=== PATIENT | female | born 1955 | race Caucasian/White ===

== ENCOUNTER 2022-03-28 07:33 | Emergency (ER) | payer MEDICAID, SELFPAY ==
[2022-03-28 07:42] VITALS: BP 180/113; PULSE 94; RESP 18; TEMP 36.4; O2SAT 89; BMI 33.7
--- NOTE | 2022-03-28 07:47 | XRR_ITS ---
PROCEDURE INFORMATION: Exam: XR Chest Exam date and time: 03/28/2022 8:48 AM Age: 66 years old Clinical indication: Cough and shortness of breath; Additional info: Cough, SOB TECHNIQUE: Imaging protocol: Radiologic exam of the chest. Views: 1 view. COMPARISON: CR XR chest 1V 41000 03/26/2019 10:11 PM FINDINGS: Lungs: Unremarkable. No consolidation. Pleural spaces: Unremarkable. No pleural effusion. No pneumothorax. Heart/Mediastinum: Unremarkable. No cardiomegaly. Bones/joints: Unremarkable. XR/XR chest 1V portable [id number] IMPRESSION: No acute findings.
--- NOTE | 2022-03-28 07:48 | ECG_ITS ---
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
--- NOTE | 2022-03-28 07:49 | ED_ITS ---
HPI - SOB/Dyspnea General: Chief Complaint: Shortness of Breath/Dyspnea Stated Complaint: sob,congestion,weak Time Seen by Provider: 03/28/22 07:34 Source: patient Mode of arrival: ambulatory Limitations: no limitations History of Present Illness: HPI Narrative: Patient is a nice 66-year-old female presents to ED today with complaints of not feeling well over the past 2 to 3 days. She is told me she has been having trouble sleeping, has felt nauseous with a decreased appetite, has experienced subjective low-grade fevers, has had a productive cough with associated shortnes s of breath. She states she has been around some sick grandchildren with similar symptoms. She is an every day smoker with no known history of COPD or emphysema. Patient does not wear oxygen. She is not having any chest pain. She feels like her most bothersome symptom is the shortness of breath and productive cough. She has not noticed any lower extremity swelling, orthopnea, or PND. Patient has not had any vomiting, abdominal pain, or diarrhea. No urinary complaints. MD elicited complaint: shortness of breath and cough Pertinent past history: other (everyday smoker, HTN) Onset (ago): day(s) Context: other (reports being around sick grandchildren) Timing: constant Severity: moderate Associated symptoms: Reports chest congestion, fever(s) (subjective) and nausea; Deny abdominal pain, chest pain, dizziness, extremity pain, hemoptysis, lightheadedness, palpitations, syncope or vomiting Treatment prior to arrival: none Related Data: Home oxygen amount: none Review of Systems Const: Reports: fever(s) (subjective) and fatigue; Denies: chills or body aches ENMT: Denies: throat pain, odynophagia, nasal discharge, nasal congestion, post nasal drip or sinus pain Card: Reports: dyspnea on exertion; Denies: chest pain, palpitations, irregular heart rhythm, edema, swelling of feet/ankles, lightheadedness, syncope or pre-syncope Resp: Reports: dyspnea, productive cough and chest congestion; Denies: wheezing, pain on inspiration or hemoptysis GI: Reports: nausea; Denies: abdominal pain, vomiting, diarrhea, change in bowel habits, hematochezia or melena : Denies: flank pain or dysuria Musc: Denies: neck pain, back pain, extremity pain or joint pain Skin/Breast: Denies: rash Neuro: Denies: headache(s), dizziness or confusion PFSH ED PFSH: Social History Smoking and tobacco status: current every day smoker cigarettes Packs smoked per day: 1.5 Years cigarettes smoked: 30 Quit status (tobacco): considering quitting Second hand smoke exposure: No Physical Exam Const: COMMON NORMALS: patient oriented x3 and alert GENERAL APPEARANCE: cooperative and in distress (mildly hypoxic on RA) ORIENTATION/CONSCIOUSNESS: Yes awake, Yes oriented to person, Yes oriented to place and Yes oriented to time HENMT: COMMON NORMALS: normocephalic and atraumatic HEAD & SCALP: normal to inspection, normocephalic and atraumatic Neck/C-Spine: COMMON NORMALS: no lymphadenopathy and no JVD GENERAL: Yes normal visual inspection Chest: COMMONS NORMALS: normal inspection of the chest and normal palpation of entire chest wall Resp: COMMON NORMALS: normal respiratory effort EFFORT & INSPECTION: Yes able to speak in complete sentences and Yes respiratory distress (mildly hypoxic on RA 89-90%) AUSCULTATION: rhonchi throughout and wheezes scattered wheezes Cardio: COMMON NORMALS: no JVD, regular rate and regular rhythm RATE: regular rate RHYTHM: regular rhythm GI: COMMON NORMALS: Normal to inspection, nondistended, normoactive bowel sounds present, Soft to palpation and non-tender PALPATION: Yes Soft to palpation Extremity: COMMON NORMALS: normal to inspection, no calf tenderness and no pedal edema GENERAL: Yes normal exam except as noted Neuro: BI COMA SCALE: document GCS findings [place] coma scale eye opening: Spontaneous Bi coma scale verbal response: Orientated [place] coma scale motor response: Obey commands Bi coma scale total score: 15 COMMON NORMALS: patient oriented x3, moves all extremities, no focal motor deficits, no sensory deficits noted and gait normal SENSORIUM/ORIENTATION: Yes alert, Yes oriented to person, Yes oriented to place and Yes oriented to time Skin: COMMON NORMALS: no rashes or lesions noted GENERAL SKIN EXAM: no rashes or lesions noted Course Vital Signs: Vital signs: Vital Signs Temperature 97.6 F 03/28/22 07:42 Pulse Rate 75 03/28/22 10:51 Respiratory Rate 18 03/28/22 10:51 Blood Pressure 167/82 03/28/22 10:51 Pulse Oximetry 91 03/28/22 11:23 Oxygen Delivery Me thod 03/28/22 10:51 Oxygen Flow Rate 2 03/28/22 11:23 MDM - SOB/Dyspnea Medical Decision Making Patient is a nice 66-year-old female here with concerns of not feeling well, subjective low-grade fevers, shortness of breath with cough. Patient is an ev cornelio day history with no known history of COPD although this is very likely. Upon arrival she is hypertensive at 180/113 and hypoxic on room air at 88 to 90%. She admittedly did not take her blood pressure medication this morning. Blood pressure did improve with administration of this. Work-up overall is non- concerning. She has a normal white count with a normal procal. She is hyponatremic although this seems to be chronic for her. Mildly hypokalemic and was given oral replacement for this. Baseline troponin of 17 with a negative delta. Initial and repeat EKGs without ischemic findings. CXR normal. Rapid influenza and COVID-negative. Coronavirus PCR pending. DDx includes viral uppe r respiratory illness including COVID-19 vs COPD exacerbation. Patient was offered hospital admission secondary to hypoxia but she declines and would like to go home. Will be placed on steroids, antibiotics, and steroid inhaler. She will be called with Coronavirus PCR results if positive. I think would be reasonable if positive to switch her antibiotics for Paxlovid. Patient states her grandson is an RN and will help care for her and monitor her oxygen levels. Strict return ED precautions given to which she voices understanding of. Lab Data 03/28/22 08:25 03/28/22 08:25 Labs/Radiology: Radiology Impressions Chest X-Ray 03/28/22 07:47 IMPRESSION: No acute findings. Laboratory Results WBC 5.2 10^3/uL (4.0-10.0) 03/28/22 08:25 RBC 4.97 10^6/uL (4.1-5.3) 03/28/22 08:25 Hgb 14.9 g/dL (11.5-15.3) 03/28/22 08:25 Hct 43.8 % (37.0-47.0) 03/28/22 08:25 MCV 88.1 fl (81-99) 03/28/22 08:25 MCH 30.0 pg (28.0-34.0) 03/28/22 08:25 MCHC 34.0 g/dL (30.0-36.0) 03/28/22 08:25 RDW 13.0 % (12.1-15.1) 03/28/22 08:25 Plt Count 206 10^3/cmm (130-400) 03/28/22 08:25 MPV 10.9 fL (7.4-10.4) H 03/28/22 08:25 Neut % (Auto) 65.8 % 03/28/22 08:25 Lymph % (Auto) 22.3 % 03/28/22 08:25 [place] % (Auto) 11.5 % 03/28/22 08:25 Eos % (Auto) 0.0 % 03/28/22 08:25 Baso % (Auto) 0.2 % 03/28/22 08:25 Neut # (Auto) 3.39 10^3/uL (1.8-7.7) 03/28/22 08:25 Lymph # (Auto) 1.2 10^3/uL (0.8-4.8) 03/28/22 08:25 [place] # (Auto) 0.6 10^3/uL (0.2-0.9) 03/28/22 08:25 Eos # (Auto) 0.0 10^3/uL (0.0-0.8) 03/28/22 08:25 Baso # (Auto) 0.0 10^3/uL (0.0-0.1) 03/28/22 08:25 Nucleated RBC % (auto) 0 % 03/28/22 08:25 Nucleated RBCs # 0.0 /100WBC 03/28/22 08:25 Sodium 124 mmol/L (136-145) L 03/28/22 08:25 Potassium 3.1 mmol/L (3.5-5.1) L 03/28/22 08:25 Chloride 84 mmol/L (98-107) L 03/28/22 08:25 Carbon Dioxide 29 mmol/L (22-29) 03/28/22 08:25 Anion Gap 14.1 (5-19) 03/28/22 08:25 BUN 10 mg/dL (8-23) 03/28/22 08:25 Creatinine 0.5 mg/dL (0.5-0.9) 03/28/22 08:25 GFR Calculation 123.8 mL/min (90-130) 03/28/22 08:25 Glucose 107 mg/dL (65-115) 03/28/22 08:25 Calculated Osmolality 258 mOsm/kg (285-295) L 03/28/22 08:25 Calcium 9.7 mg/dL (8.5-10.5) 03/28/22 08:25 Total Bilirubin 0.3 mg/dL (0.15-1.2) 03/28/22 08:25 AST 25 U/L (0-32) 03/28/22 08:25 ALT 17 U/L (0-33) 03/28/22 08:25 Alkaline Phosphatase 96 U/L (35-105) 03/28/22 08:25 Troponin T Baseline 17 ng/L (0-10) H 03/28/22 08:25 Troponin T 120 Minute 15.05 ng/L (0-10) H 03/28/22 10:24 Delta Troponin T -1.95 ABS# (0-10) L 03/28/22 10:24 Total Protein 6.8 g/dL (6.6-8.7) 03/28/22 08:25 Albumin 4.3 g/dL (3.5-5.2) 03/28/22 08:25 Globulin 2.5 g/dL (1.3-4.6) 03/28/22 08:25 Procalcitonin 0.12 ng/mL (0-0.5) 03/28/22 08:25 Influenza Type A Ag negative (Negative) 03/28/22 08:25 Influenza Type B Ag negative (Negative) 03/28/22 08:25 SARS-CoV-2 Ag (Rapid) negative (Negative) 03/28/22 08:25 Discharge Plan Discharge Patient Disposition: Home Clinical Impression: Acute exacerbation of chronic obstructive airways disease Condition: Stable Prescriptions: New prednisone 10 mg tablet 60 mg PO DAILY 5 Days Qty: 30 0RF levofloxacin 500 mg tablet 500 mg PO DAILY 7 Days Qty: 7 0RF Advair HFA 45-21 mcg/actuation HFA aerosol inhaler 2 inh inhalation Q12H Qty: 8 0RF Rx Instructions: administer with spacer No Action potassium chloride 10 mEq tablet extended release 10 meq PO DAILY buspirone 10 mg tablet 10 mg PO BID Qty: 60 1RF levothyroxine 50 mcg capsule 50 mcg PO DAILY lisinopril 10 mg tablet 10 mg PO DAILY Discharge Orders: Discharge ED (Routine); Ordered 03/28/22 Ordered By: Alicia Burger Other Ambulatory Orders: DME: Oxygen (Order) Location: None Selected Ordered By: Alicia Burger Referrals: Shane Barlow MD [Primary Care Provider] - Patient Instructions: COPD (Chronic Obstructive Pulmonary Disease) (DC) Coding Level of Care Code ED Optical Lab Technician for Chg Fwd Exam Comprehensive
[2022-03-28 08:01] VITALS: PULSE 86; RESP 20; O2SAT 94
[2022-03-28] MEDS: ipratropium-albuterol 3 mL Neb INHALATION (08:01)
[2022-03-28 08:04] VITALS: PULSE 84
[2022-03-28] MEDS: lisinopril 20 mg Tablet 40 MG PO (08:19)
[2022-03-28 09:00] LABS: Basophils % 0.2 %; Hematocrit 43.8 % (37.0-47.0); Hemoglobin 14.9 g/dL (11.5-15.3); Lymphocytes # 1.2 10^3/uL (0.8-4.8); Lymphocytes % 22.3 %; Mean Corpuscular Volume 88.1 fl (81-99); Mean Platelet Volume 10.9 fL (7.4-10.4); Monocytes # 0.6 10^3/uL (0.2-0.9); Monocytes % 11.5 %; Neutrophils # 3.39 10^3/uL (1.8-7.7); Neutrophils % 65.8 %; Nucleated Red Blood Cells % 0 %; Platelet Count 206 10^3/cmm (130-400); Red Blood Count 4.97 10^6/uL (4.1-5.3); White Blood Count 5.2 10^3/uL (4.0-10.0)
[2022-03-28 09:15] LABS: Troponin(5th) Baseline 17 ng/L (0-10)
[2022-03-28 09:17] LABS: Alanine Aminotransferase 17 U/L (0-33); Albumin Level 4.3 g/dL (3.5-5.2); Alkaline Phosphatase 96 U/L (35-105); Anion Gap 14.1 (5-19); Aspartate Amino Transferase 25 U/L (0-32); Blood Urea Nitrogen 10 mg/dL (8-23); Calcium 9.7 mg/dL (8.5-10.5); Carbon Dioxide 29 mmol/L (22-29); Chloride 84 mmol/L (98-107); Creatinine Clr Calc Pharmacy 76.4858; Globulin 2.5 g/dL (1.3-4.6); Glomerular Filtration Rate 123.8 mL/min (90-130); Glucose 107 mg/dL (65-115); Osmolality Calculated 258 mOsm/kg (285-295); Potassium 3.1 mmol/L (3.5-5.1); Sodium 124 mmol/L (136-145); Total Bilirubin 0.3 mg/dL (0.15-1.2); Total Protein 6.8 g/dL (6.6-8.7)
[2022-03-28 09:23] LABS: Procalcitonin 0.12 ng/mL (0-0.5)
[2022-03-28 09:47] LABS: SARS Covid-2 Antigen negative (Negative)
[2022-03-28 09:48] LABS: Influenza A by IFA negative (Negative); Influenza B by IFA negative (Negative)
--- NOTE | 2022-03-28 09:55 | ECG_ITS ---
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
[2022-03-28] MEDS: potassium chloride ER 20 mEq Tablet 40 MEQ PO (10:20)
[2022-03-28 10:51] VITALS: BP 167/82; PULSE 75; RESP 18; O2SAT 92
[2022-03-28 11:02] LABS: Troponin 5 2HR 15.05 ng/L (0-10)
[2022-03-28 11:04] LABS: Troponin 5 2HR Delta -1.95 ABS# (0-10)
[2022-03-28 11:23] VITALS: O2SAT 85; O2SAT 91; O2SAT 92
[2022-03-28 12:26] LABS: Adenovirus Not Detected (NOT DETECT); Chlamydia Pneumoniae Not Detected (NOT DETECT); Coronavirus 229E,HKU1,NL63,OC4 Not Detected (NOT DETECT); Human Metapneumovirus Not Detected (NOT DETECT); Human Rhinovirus/Enterovirus Not Detected (NOT DETECT); Influenza A Detected (NOT DETECT); Influenza A H1 Not Detected (NOT DETECT); Influenza A H1-2009 Detected (NOT DETECT); Influenza A H3 Not Detected (NOT DETECT); Influenza B Not Detected (NOT DETECT); Mycoplasma Pneumoniae Not Detected (NOT DETECT); Parainfluenza Virus Type 1 Not Detected (NOT DETECT); Parainfluenza Virus Type 2 Not Detected (NOT DETECT); Parainfluenza Virus Type 3 Not Detected (NOT DETECT); Parainfluenza Virus Type 4 Not Detected (NOT DETECT); Respiratory Syncytial Virus A Not Detected (NOT DETECT); Respiratory Syncytial Virus B Not Detected (NOT DETECT); SARS-COV-2 Not Detected (NOT DETECT)
[2022-03-28 12:30] VITALS: BP 162/89; PULSE 84; RESP 16; O2SAT 93
[2022-03-28 12:53] LABS: Influenza A Detected (NOT DETECT); Influenza A H1 Not Detected (NOT DETECT); Influenza A H1-2009 Detected (NOT DETECT); Influenza A H3 Not Detected (NOT DETECT); Influenza B Not Detected (NOT DETECT); Results from Genmark
--- NOTE | 2022-04-06 16:19 | DCPLANNER ---
cyber access precert completed, and faxed to HOME - certification number Approval pending for this procedure and patient on current date of service, pending eligibility verification. Pre-Cert number assigned: [id number]
== END 2022-03-28 12:31 | disposition home or self-care (01) ==
PROVIDERS: Emergency Medicine; Emergency Provider Physician Assistant; PCP Family Medicine
DX: J44.1 Chronic obstructive pulmonary disease with (acute) exacerbation (principal); Z20.822 Contact with and (suspected) exposure to COVID-19; F17.210 Nicotine dependence, cigarettes, uncomplicated
CPT/HCPCS: 71045; 80053; 84145; 84484; 85025; 87426; 87631; 87635; 87804; 93005; 94640; 96374; 99285; J2930

== ENCOUNTER → 2022-03-31 11:33 | Outpatient (BNVA) | payer MEDICAID, SELFPAY | PROVIDERS: PCP Family Medicine; Visit Provider Family Medicine | DX: E87.1 Hypo-osmolality and hyponatremia (principal); E87.6 Hypokalemia; E03.9 Hypothyroidism, unspecified; I10 Essential (primary) hypertension; Z13.6 Encounter for screening for cardiovascular disorders; J44.9 Chronic obstructive pulmonary disease, unspecified; Z72.0 Tobacco use; J44.1 Chronic obstructive pulmonary disease with (acute) exacerbation | CPT/HCPCS: 80048; 80061; 84443 ==

== ENCOUNTER → 2022-04-07 12:59 | Outpatient (BNVA) | payer MEDICAID, SELFPAY | PROVIDERS: PCP Family Medicine; Visit Provider Family Medicine | DX: J44.9 Chronic obstructive pulmonary disease, unspecified (principal); H61.23 Impacted cerumen, bilateral; E87.6 Hypokalemia | CPT/HCPCS: 80048 ==

== ENCOUNTER → 2022-06-04 09:33 | Outpatient (BNVA) | payer MEDICAID, SELFPAY | PROVIDERS: PCP Family Medicine; Referring Provider Family Medicine; Visit Provider Student in an Organized Health Care Education/Training Program | DX: M17.0 Bilateral primary osteoarthritis of knee (principal) | CPT/HCPCS: 20610; 73560; 73565; 99204; J3301; J3490 ==

== ENCOUNTER → 2022-08-26 10:33 | Outpatient (BNVA) | payer MEDICAID, SELFPAY | PROVIDERS: PCP Family Medicine; Visit Provider Nurse Practitioner Family | DX: M17.11 Unilateral primary osteoarthritis, right knee (principal) | CPT/HCPCS: 99214 ==

== ENCOUNTER 2022-09-08 12:02 | Outpatient (CLI) | payer MEDICAID, SELFPAY ==
--- NOTE | 2022-09-08 12:00 | CT_ITS ---
WS: [id number] CT RIGHT KNEE, NONCONTRAST TECHNIQUE: Noncontrast CT of the RIGHT knee to include the RIGHT hip and ankle. [place] CLINICAL INFORMATION: pre-op COMPARISON: None. DLP: 1003.[address] scans at [facility] use at least one of these dose optimization techniques: automated e xposure control; mA and/or kV adjustment per patient size (includes targeted exams where dose is matc hed to clinical indication); or iterative reconstruction. FINDINGS: Advanced osteoarthritis RIGHT knee worse involving the medial joint compartment with comple te loss of joint space and subchondral sclerosis Mild degenerative arthritis sacroiliac joints. Moderate degenerative arthritis both hips. Vascular ca lcification. Hypertrophic changes along the joint line. Hypertrophic patella. CT/CT knee RT [place] IMPRESSION: Images obtained for preoperative purposes.
== END 2022-09-08 12:03 | disposition home or self-care (01) ==
PROVIDERS: PCP Family Medicine; Visit Provider Nurse Practitioner Family
DX: M17.11 Unilateral primary osteoarthritis, right knee (principal)
CPT/HCPCS: 73700

== ENCOUNTER → 2022-09-16 14:39 | Outpatient (BNVA) | payer MEDICAID, SELFPAY | PROVIDERS: PCP Family Medicine; Visit Provider Student in an Organized Health Care Education/Training Program | DX: M17.0 Bilateral primary osteoarthritis of knee (principal) | CPT/HCPCS: 99214 ==

== ENCOUNTER 2022-09-21 13:12 | Outpatient (CLI) | payer MEDICAID, SELFPAY ==
--- NOTE | 2022-09-21 13:45 | USCV_ITS ---
Deonna Oviedo Age: 67 Gender: F : 1955 Exam Date: 09/21/2022 14:03 Ordering Phys: Lisandro Becker NP Technologist: CT Exam Location: [facility]_ Indication: bruit Risk Factors: Previous Vascular Surgery: Right Brachial BP: / Left Brachial BP: / Right Left Velocity (cm/s) Spectral Plaque Velocity (cm/s) Spectral Plaque Syst/Diast Broadening Syst/Diast Broadening 66.90/ 15.60 Prox CCA 72.00 / 15.30 75.90/ 20.20 Mid CCA 90.10 / 18.90 52.80/ 15.60 Distal CCA 82.90 / 15.30 63.90/ 18.00 Prox ICA 59.30 / 14.00 54.10/ 17.50 Mid ICA 66.30 / 22.60 61.20/ 19.00 Distal ICA 66.20 / 18.70 70.20 ECA 215.80 0.84 ICA/CCA 0.74 Antegrade Vertebral Antegrade 44.10/ 13.80 cm/s 39.70/ 14.90 cm/s Bi Subclavian Bi 109.7 112.8 0 0 FINDINGS Comparison: none available. No significant elevation of systolic or diastolic velocities. Waveforms are normal. Diffuse bilateral scattered calcified plaque and intimal thickening throughout the common carotid arteries and extending through the bifurcation. Antegrade vertebral arteries. CONCLUSIONS Bilateral ICA stenosis less than 50%. Mild carotid atherosclerosis. Dr. Nataly Levin DO (Electronically Signed) Final Date: 21 September 2022 15:55 S
== END 2022-09-21 13:13 | disposition home or self-care (01) ==
LOC: RAD 13:13
PROVIDERS: PCP Family Medicine; Visit Provider Clinical Nurse Specialist Adult Health
DX: R09.89 Other specified symptoms and signs involving the circulatory and respiratory systems (principal)
CPT/HCPCS: 80048; 85025; 93880

== ENCOUNTER 2022-09-29 10:37 | Observation (INO) | payer MEDICAID, SELFPAY ==
[2022-09-22 10:07] VITALS: BMI 35.6
[2022-09-22 10:33] LABS: Add Urine Microscopic? NO; Charge for UA Resulting for Rev
[2022-09-22 10:50] LABS: Urine Appearance Clear (CLEAR); Urine Color Yellow (Yellow); pH Urine 5 (5-7)
[2022-09-22 10:51] LABS: Bilirubin Urine Neg (Negative); Blood Urine Neg (Negative); Glucose Urine UA Norm (Normal); Ketones Urine Negative (Negative); Leukocyte Esterase Urine Negative (Negative); Nitrate Urine Negative (Negative); Protein Urine Neg (Negative); Urobilinogen Urine Norm (Negative)
--- NOTE | 2022-09-22 17:16 | P.ANESASSM_ITS ---
Pre-Anesthetic Assessment Height/Weight: Height 1.63 m Weight 94.347 kg Preop Diagnosis: Right knee degenerative joint disease Operation Date: 09/29/22 07:00 Proposed Procedures p right total knee arthroplasty renea: 53442, M17.11(Right) - Gonzalez Ocampo DO Familial anesthetic complications: none Was Beta Fernanda taken within 24 hours: N/A Was Clonidine taken within 24 hours: N/A Social No alcohol and No tobacco (h/o smoking) Exam alert, oriented x 3 and regular rate & rhythm Airway Submandibular: within normal limits Cervical ROM: within normal limits Mallampati: Class II Dentition: false (upper) Pulmonary Chronic Obstructive Pulmonary Disease CV/HEM Hypertension and Peripheral Vascular Disease Metabolic Morbid Obesity and Thyroid Disease [facility] [place] Osteoarthritis/DJD Anesthetic Plan ASA status: 3 Anesthesia: Regional (specify below) (SAB with adductor blk) Medications/Allergies Home Medications Medication Instructions Recorded Confirmed Last Taken Type fluticasone propionate 45 2 inh inhalation Q12H #8 grams 03/28/22 09/22/22 Unknown Rx mcg-salmeterol 21 mcg/actuation HFA inhaler (Advair HFA) potassium chloride 20 mEq 20 meq PO BID #60 tabs 04/01/22 09/22/22 09/22/22 Rx tablet,extended release buspirone 10 mg tablet 10 mg PO BID #180 tabs 07/12/22 09/22/22 09/22/22 Rx lisinopril 40 mg tablet 40 mg PO DAILY #90 tabs 07/12/22 09/22/22 09/22/22 Rx nystatin 100,000 unit/gram topical 1 applic topical TID #30 grams 07/19/22 09/22/22 Unknown Rx powder Allergies Allergy/AdvReac Type Severity Reaction Status Date / Time No Known Allergies Allergy Verified 09/16/22 15:08 [facility] Anesthesia Medical History COPD (chronic obstructive pulmonary disease) Hypertension Hypothyroidism Left carotid bruit Tobacco abuse Surgical History No history of previous surgery Family History Sister Cancer breast Brother Cancer throat Mother CAD (coronary artery disease) Other Diabetes Hypertension Social History (Reviewed 09/16/22 @ 14:46 by Lucille Kee Smoking and tobacco status: former smoker Quit status (tobacco): has quit using tobacco Former quit date comment: March 2022 Second hand smoke exposure: No Alcohol intake: never Substance/Drug Use: never Lives independently: Yes Household members: spouse Marital status: Number of children: 1 Number of grandchildren: 3 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
[2022-09-29] VITALS (20 sets, daily range): BP systolic 95–159; BP diastolic 50–88; PULSE 54–91; RESP 14–20; TEMP 36.1–36.8; O2SAT 91–97
[2022-09-29] MEDS: acetaminophen 1,000 MG/100 ML PIGGYBACK 400 MG IV ×3 (06:40→22:24)
--- NOTE | 2022-09-29 06:49 | W.PM.OPSUD ---
Surgery/Procedure H&P Update DATE OF PROCEDURE: September 29, 2022 DATE H&P PERFORMED: 09/16/22 CHANGES TO PREVIOUS DOCUMENTATION: None. No changes in HPI previous office visit on 09/16/2022. At this point time patient's been cleared by preoperative clearance to proceed with right total knee arthroplasty. Patient understands risk benefits complication alternatives with surgery and elects proceed with surgical intervention all questions answered. PREOP DIAGNOSIS: Right knee degenerative joint disease PRIMARY INDICATION FOR PROCEDURE: Right knee degenerative joint disease failed conservative treatment PLANNED PROCEDURE: Operation Date: 09/29/22 07:55 Proposed Procedures p right total knee arthroplasty renea: 56994, M17.11(Right) - Gonzalez Ocampo DO
[2022-09-29] MEDS: lactated ringers 500 ML IV (06:55)
[2022-09-29] MEDS: sodium chloride 0.9% 1,000 ML 30 ML IV (06:55)
[2022-09-29] MEDS: ketorolac 30 mg/mL INJ IVP (07:00)
[2022-09-29] MEDS: ceFAZolin 2,000 MG in sodium chloride 0.9% (plus) 50 ML 100 MG IV ×3 (08:11→23:36)
--- NOTE | 2022-09-29 08:51 | ANES.PROC ---
Anesthesia Procedures Procedure/Date: 09/29/22 adductor Nerve Block ^: Nerve Block 1: Main Anesthesia: spinal anesthesia block Time Out Performed: Yes Consent: requested by attending/covering physician, risks and benefits reviewed and patient agrees to proceed Nerve block location: adductor canal Anesthesia monitors applied: pulse oximetry, EKG, BP cuff and oxygen Nerve block position: supine Anesthetic Used: ropivicaine 0.5% Amount of anesthesia used (mL): 20 Ultrasound used to: recognize landmarks and visualize and ID femerol nerve Nerve Stimulator Used?: No Interscalene/Femoral BLK: 2 stimuplex 22 g needle used for position and inplane approach, visualize local anesthetic spread and no vascular puncture identified Injection: neg aspiration of heme Patient Tolerated Procedure: well and no complications Complications: none
[2022-09-29] MEDS: tranexamic acid 1,000 mg/10mL SDV 1000 MG XX (09:12)
[2022-09-29] MEDS: ketorolac 30 mg/mL INJ XX (09:12)
[2022-09-29] MEDS: EPINEPHrine 1 mg/mL INJ XX (09:12)
--- NOTE | 2022-09-29 09:45 | P.ANESUD_ITS ---
Pre-Anesthetic Update Pre-Anesthetic Assessment: Date of Surgery/Procedure: 09/29/22 Preop Araceli gnosis: Right knee degenerative joint disease Proposed Procedure: Operation Date: 09/29/22 07:55 Proposed Procedures p right total knee arthroplasty renea: 62736, M17.11(Right) - Gonzalez Ocampo, DO Any changes to Pre-Anesthetic Assessment?: No Last Intake: Intake Last Liquid Date 09/28/22 Last Liquid Time 22:30 Last Solid Date 09/28/22 Last Solid Time 20:00 Labs Last 48hrs: Blood Bank 09/29/22 06:42 Blood Type A Positive Rho(D) Type Positive Antibody Screen Negative Vitals: Temperature 98.2 F 09/29/22 06:30 Temperature Source Temporal Artery S can 09/29/22 06:30 Pulse Rate 83 09/29/22 06:30 Respiratory Rate 17 09/29/22 06:30 Blood Pressure 149/88 09/29/22 06:30 Blood Pressure Ximena n 108 09/29/22 06:30 Pulse Oximetry 94 09/29/22 06:30 Oxygen Delivery Me thod Room Air 09/29/22 06:52 Exam: Pre-Anes Outpt Exam: alert, oriented x 3, clear to auscultation bilaterally and regular rate & rhythm Cardiac Studies: No Data to Display
--- NOTE | 2022-09-29 10:32 | P.OP_ITS ---
Operative Report Date of procedure: September 29, 2022 Pre-op diagnosis: Preop Diagnosis Right knee degenerative joint disease Procedure: Post-op diagnosis: Same Procedure done: Right total knee arthroplasty, cemented?robotic assisted Kodi Implants: [place] triathlon size 5 femur?CR cemented left Tj triathlon size 4 tibia universal baseplate cemented [place] triathlon asymmetric patella size 32 mm Tj triathlon polyethylene 9 mm Surgeon: Gonzalez Ocampo DO Estimated blood loss: 45 mL Tourniquet 67minutes IV fluids: 1800 mL Urine output: 300mL Complications: None Condition: stable Disposition: floor Brief History: Patient is a pleasant 67-year-old female with chronic right knee degenerative joint disease.? Patient's failed conservative treatment has [id number] arthritis.? Patient's failed conservative treatment. Patient's been over 3 months out from most recent corticosteroid injection. Patient would like to proceed with a right total knee arthroplasty.? We talked about continued conservative treatment and surgical intervention as far as the risk benefits complications alternatives surgical and nonsurgical treatment options.? At this point time understanding risks with surgery patient agrees to proceed with surgical intervention.? Once again risks with surgery include but are not limited to make it better make it worse blood clot, heart attack, stroke, on the table, infection, injury to nerves or vessels, persistent pain, arthrofibrosis, implant failure.? Patient's been medically optimized and cleared for surgical intervention.? Understanding these risks he agrees to proceed with surgical intervention consent was obtained in the office.? All questions answered. Procedure: Patient was seen and evaluated in the preoperative holding area.? Consent was reviewed and signed with patient with plan for right total knee arthroplasty.? All questions answered.? Correct extremity marked.? Patient seen and evaluated by the anesthesia department and once cleared for surgery was taken back to the operative suite.? Patient was placed into a supine position on the OR table.? All bony prominences were well-padded.? Patient was appropriately secured to the bed.? Patient underwent anesthesia per the anesthesia department.? Patient underwent spinal anesthesia. Patient received anesthesia per anesthesia department and no Rivera catheter was applied.? A nonsterile tourniquet was applied to the right thigh.? At this point in time a final timeout performed.? Patient received appropriate preoperative antibiotics and TXA. Next the right lower extremity was then prepped and draped in standard orthopedic fashion.?Esmarch tourniquet was used exsanguinate the right lower extremity.? Tourniquet was insufflated to 250 mmHg. A standard anterior incision was made over midline of the right knee.? Sharp scalpel excision through skin and subcutaneous tissue full-thickness skin flaps were made.? Fascia was elevated off of the extensor retinaculum was stable with medial parapatellar arthrotomy was then made.? The performed standard sequential releases with a medial release was patient had a varus deformity.? Next the the patella was then stuffed and the knee was then flexed.? Ferdinand was placed superiorly around the anterior aspect of the femur this was freed of synovium and I subsequently then placed by 2 femur pins to establish my femur arrays for the Kodi robot.? These were then placed bicortically and? femur array was then appropriately secured with appropriate visualization.? Next attention was turned towards the tibial rays.? These were then drilled sequentially bicortically in parallel fashion and intraincisional.? I then placed my guide as well as my tibial array on in place.? This was appropriately secured and had excellent visualization with the Kodi robot.? Next the tibial checkpoint as well as femur checkpoint were then placed.? At this point time I then subsequently established my head center as well as?medial& lateral malleoli as well as my checkpoints.? Next utilizing standard Kodi technology I then mapped out the appropriate points and confirmation points around the femur as well as the tibia in standard fashion.? Once this was then done I then removed all osteophytes in preparation for dynamic testing.? All osteophytes were removed as well as I removed the ACL and the PCL was excised due to its significant tearing and degeneration noted.? At this point time the knee was brought into full extension and we performed our standard evaluation of our gap balancing stressing his ligaments and extension as well as flexion appropriate adjustments were made to have appropriate gap balancing in both flexion and extension.? This plan for final counts.? We get a preoperative plan evaluating our implants which was a size 5 femur and a size 4 tibia.? Next we brought in the Kodi robot and sequentially made our femur cuts.? All excess bony cuts were then removed.? Finally we made our tibial cut.? Once this was done a standard PCL retractor was then placed into this position I excised the medial and lateral meniscus.? The tibial cut was then subsequently removed all excess bony debris was removed.? I then utilized a lamina merchandise adjustment clerk and remove the posterior osteophytes.? At this point time sized the tibia and confirmed this was a size 4.? I utilized our blunt probe to establish rotation of tibial implant.? Once this was done I then placed my tibia size 4 trial in appropriate position and then subsequently placed tibial pins to hold this into place placed a size 9 mm poly as well as a size 5 femur which was appropriately impacted in place knee was then subsequently brought into extension.? This was stable with varus valgus stress in extension as well as flexion.? Patient had symmetric? translation and stability in flexion with symmetric gaps.? Once this was done I had excellent balance gaps in flexion and extension with varus and valgus stresses.? At this point I was satisfied with these implants these were then verified and opened on the back table size 4 tibia, size 5 femur,? size 9 mm polythickness.? We did confirm appropriate gap balancing and stresses as well as alignment utilizingCristela Mariee and were satisfied with this plan.? ?At this point time with my trials in place I then towel clip the patella everted this made appropriate measurements subsequently utilizing freehand technique performed by patellar resurfacing this was confirmed to be appropriate resection and subsequently sized to be a 32mm asymmetric.? My drill peg guides were then clamped and appropriate position and appropriate position in the patella for appropriate tracking and parallel with the joint.? Pegs were drilled trial implant was placed and the knee was then subsequently ranged and found to have excellent patellar tracking.? Femur pegs were then drilled.? All checkpoints as well as guidepins and arrays were removed and appropriate counts made.? Satisfied with our tibial placement rotation I then utilized the keel punch and prepped the tibia.? At this point time all of our trial implants were removed.?The wound bed? was thoroughly irrigated and dried and prepped for cementation.? Cement was mixed on the back table.? Once cement was ready this was then covered onto the tibia and the tibial baseplate was then impacted and all excess cement was removed.? Next the polyethylene was then impacted into place on the tibial baseplate.? Next cement was placed onto the femur as well as under the femur implants and impacted in to place and all excess cement was extruded.? Knee was taken into full extension? to clear all excess cement was removed.? Warm saline was placed over the joint.? I then towel clip patella and dried for cementation. cemented the patella into place.? This was all clamped and the cement was allowed to cure.? Thorough irrigation performed with pulse lavage.? I then placed my periarticular injection while the cement was curing.? Once cured the knee was taken through range of motion and had excellent stability and gaps were balanced in flexion and extension.? Tourniquet was then deflated.? Once tourniquet was deflated hemostasis satisfactory with electrocautery.? Next I then subsequently closed the capsule with Ethibond suture as well as a running strata fix suture.? Knee was then taken through range of motion 30 times.? Next the skin was then closed in layered fashion of running stratifix sutures of deep and subcutaneous tissue and skin. Patient was closed in flexion and Prineo glue was then placed over the incision this allowed to cure.? Incision was covered with ABDs soft roll and Chong wrap.? Patient was then awakened from anesthesia and taken to PACU in stable condition. Disposition: Patient taken to PACU in stable condition will be admitted to the floor for pain control PT/OT weight-bear as tolerated right lower extremity dressing changes as needed, DVT prophylaxis.?Pain control. Patient will receive appropriate postoperative antibiotics. patient will be seen today by the internal medicine team for medical management.? Patient will follow up with the office in 2 weeks.? Patient understands agrees with current plan.? All questions answered.
--- NOTE | 2022-09-29 10:32 | PM.OP2 ---
Brief Operative Note Date of procedure: 09/29/22 Pre-op diagnosis: Right knee degenerative joint disease Post-op diagnosis: same Procedure Done: Right total knee arthroplasty?Kodi robotic assisted Surgeon: Gonzalez Ocampo Estimated blood loss (mL): 25 Complications: None Post-op Plan: Patient taken to PACU in stable condition recovering well. Patient receive appropriate discharge instructions as well as pain medication and DVT prophylaxis postoperatively. She brian be admitted to the floor overnight. l internal medicine on board for medical management and assistance. Weight-bear as tolerated right lower extremity. Encourage knee range of motion as tolerated PT/OT. Postoperative antibiotics postoperative DVT prophylaxis postoperative pain control. Plan for likely discharge home tomorrow. All questions answered. Condition: stable Disposition: floor Coding Level of Care Code Acute Code for Sonia Rich
--- NOTE | 2022-09-29 10:32 | PM.PACU ---
PACU note Narrative: Patient taken to PACU in stable condition recovering well. Spinal anesthesia still on affect unable assess motor or sensory. Dressings on in place clean dry and intact. Distal pulses are palpable toes warm well-perfused brisk cap refill less than 2 seconds compartments are soft and compressible. Exam: awake Disposition: admitted
--- NOTE | 2022-09-29 10:46 | XR_ITS ---
WS: [id number] KNEE RIGHT TECHNIQUE: 2 views of the right knee CLINICAL INFORMATION: POST RT TKA COMPARISON: None. FINDINGS: Postoperative RIGHT TKA. Hardware present in good position. Expected postoperative changes and soft t issue edema. Small suprapatellar effusion. Patellar resurfacing. XR/XR knee RT 1-2V [id number] IMPRESSION: Normal Postoperative RIGHT TKA. Kellgren-Tommie Classification:
--- NOTE | 2022-09-29 11:39 | P.CONIM_ITS ---
Providers/Reason For Consult Consulting Physician/Specialty*: Hospitalist Reason for Consult*: Postoperative management Attending Physician: Gonzalez Ocampo DO Primary Care Provider: Anne Valentin MD History of Present Illness History of Present Illness Deonna Oviedo is a 67 year old female who carries history of COPD, uses inhaler intermittently, does not use oxygen postoperatively hospital service has been requested to manage comorbid conditions. Patient postoperatively is doing fine not requiring oxygen No active pain or discomfort Patient to work with PT in the morning Family is at the bedside Review of Systems Const: Denies: fever(s) Eyes: Denies: change in vision ENMT: Denies: throat pain Card: Denies: chest pain Resp: Denies: dyspnea GI: Denies: abdominal pain : Denies: flank pain Musc: Denies: neck pain Skin/Breast: Denies: rash Medications/Allergies Home Medications Medication Instructions Recorded Confirmed Last Taken Type fluticasone propionate 45 2 inh inhalation Q12H #8 grams 03/28/22 09/29/22 Unknown Rx mcg-salmeterol 21 mcg/actuation HFA inhaler (Advair HFA) potassium chloride 20 mEq 20 meq PO BID #60 tabs 04/01/22 09/29/22 09/28/22 Rx tablet,extended release buspirone 10 mg tablet 10 mg PO BID #180 tabs 07/12/22 09/29/22 09/28/22 Rx lisinopril 40 mg tablet 40 mg PO DAILY #90 tabs 07/12/22 09/29/22 09/28/22 Rx apixaban 2.5 mg tablet (Eliquis) 2.5 mg PO BID Blood clot 09/29/22 Unknown Rx prevention 14 days #28 tabs calcium carbonate 600 mg-vitamin 1 tab PO BID 30 days #60 tabs 09/29/22 Unknown Rx D3 10 mcg (400 unit) tablet docusate sodium 100 mg capsule 100 mg PO DAILY PRN constipation 09/29/22 Unknown Rx (Colace) 10 days #10 caps ondansetron 4 mg disintegrating 4 mg PO DAILY 5 days #5 tabs 09/29/22 Unknown Rx tablet oxycodone-acetaminophen 5 mg-325 1 tab PO Q6H PRN pain 7 days #28 09/29/22 Unknown Rx mg tablet (Percocet) tabs Allergies Allergy/AdvReac Type Severity Reaction Status Date / Time No Known Allergies Allergy Verified 09/29/22 06:24 PFSH Acute PFSH: Medical History COPD (chronic obstructive pulmonary disease) Hypertension Hypothyroidism Left carotid bruit Tobacco abuse Surgical History No history of previous surgery Family History Sister Cancer breast Brother Cancer throat Mother CAD (coronary artery disease) Other Diabetes Hypertension Social History Smoking and tobacco status: former smoker Quit status (tobacco): has quit using tobacco Former quit date comment: March 2022 Second hand smoke exposure: No Alcohol intake: never Substance/Drug Use: never Lives independently: Yes Household members: spouse Marital status: Number of children: 1 Number of grandchildren: 3 Current occupational status: retired 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 Agree to transfusion: Yes Vitals/I&O/Wt Last Vital Signs Temp 97.2 F L 09/29/22 11:26 Pulse 73 09/29/22 11:26 Resp 20 H 09/29/22 11:26 BP 103/53 09/29/22 11:26 Pulse Ox 95 09/29/22 11:26 O2 Del Method Room Air 09/29/22 11:26 09/28/22 09/29/22 09/29/22 22:59 06:59 14:59 Intake Total 100 / 100 3485 / 3485 Output Total 845 / 845 Balance 100 / 100 2640 / 2640 Physical Exam Narrative: Awake and alert GCS 15 Euvolemic Abdomen soft No active wheezing Currently on room air Family at the bedside Appears stated age No active distress Urinary Catheter Management: Rivera: Cath Placed During This Visit: yes Urinary Catheter Date of Insertion: 09/29/22 Urinary Catheter Time of Insertion: 08:32 Data 09/30/22 05:03 09/30/22 05:03 A&P Assessment and plan (1) Left carotid bruit: (2) Pre-op evaluation: (3) Osteoarthritis of right knee: Qualifiers: Osteoarthritis type: primary Qualified Code(s): M17.11 - Unilateral primary osteoarthritis, right knee (4) COPD (chronic obstructive pulmonary disease): Qualifiers: COPD type: unspecified COPD Qualified Code(s): J44.9 - Chronic obstructive pulmonary disease, unspecified (5) Hypertension: Qualifiers: Hypertension type: other secondary hypertension Qualified Code(s): I15.8 - Other secondary hypertension (6) Hypothyroidism: Plan Postoperative management by hospitalist No sign of COPD exacerbation I have put DuoNeb as as-needed basis Patient is not requiring oxygen at all Does not use oxygen at home She does have Advair which she uses on as-needed basis Full code Regular diet DVT prophylaxis Eliquis Consult Attestations Medical Necessity Statement: As per orthopedics discharge tomorrow Diagnoses Left carotid bruit R09.89 Pre-op evaluation Z01.818 Osteoarthritis of right knee M17.11 Osteoarthritis type: primary COPD (chronic obstructive pulmonary disease) J44.9 COPD type: unspecified COPD Hypertension I15.8 Hypertension type: other secondary hypertension Hypothyroidism E03.9
[2022-09-29] MEDS: lactated ringers 1,000 ML 100 ML IV (12:45)
[2022-09-29] MEDS: chlorhexidine gluconate 0.12% UDC 15 mL 30 ML MUCOUS MEM (12:46)
--- NOTE | 2022-09-29 14:12 | ANE.PACU2 ---
Inpatient post-anesthesia follow up: Airway intact: Yes Vital signs: Temperature 97.2 F Pulse Rate 59 Respiratory Rate 16 Blood Pressure 123/68 Pulse Oximetry 96 Oxygen Delivery Me thod Room Air Oxygen Flow Rate Fraction of Inspir ed Oxygen Hydration adequate: Yes Nausea and vomiting: No Pain level: 1 Mental status: Baseline
[2022-09-29] MEDS: TRAMadol 50 mg Tablet PO (17:39)
[2022-09-29] MEDS: docusate sodium 100 mg Capsule PO (17:40)
[2022-09-29] MEDS: iron polysaccharide complex 150 mg Capsule PO (17:40)
[2022-09-29] MEDS: calcium carb-vit d 600mg/400unit 1 Tablet 1 EACH PO (17:40)
[2022-09-29] MEDS: mupirocin oint 22 gm 1 APPLIC NASAL (17:42)
[2022-09-29] MEDS: atorvastatin 40 mg Tablet PO (20:17)
[2022-09-29] MEDS: budesonide 0.5 mg/2 mL Neb INHALATION (20:45)
[2022-09-29] MEDS: oxyCODONE 5 mg IR Tab/Cap PO (20:58)
[2022-09-30 00:16] VITALS: BP 142/72; PULSE 76; RESP 19; TEMP 36.8; O2SAT 94
[2022-09-30] MEDS: lactated ringers 1,000 ML 100 ML IV (03:03)
[2022-09-30 03:35] VITALS: BP 152/76; PULSE 73; RESP 19; TEMP 36.8; O2SAT 95
[2022-09-30 05:13] LABS: Basophils % 0.2 %; Eosinophils % 0.1 %; Hematocrit 37.5 % (37.0-47.0); Hemoglobin 12.3 g/dL (11.5-15.3); Lymphocytes # 1.7 10^3/uL (0.8-4.8); Mean Corpuscular HGB Conc 32.8 g/dL (30.0-36.0); Mean Corpuscular Hemoglobin 29.9 pg (28.0-34.0); Mean Corpuscular Volume 91.2 fl (81-99); Monocytes # 0.7 10^3/uL (0.2-0.9); Monocytes % 5.2 %; Neutrophils # 10.59 10^3/uL (1.8-7.7); Nucleated Red Blood Cells % 0 %; Platelet Count 261 10^3/cmm (130-400); Red Blood Count 4.11 10^6/uL (4.1-5.3); Red Cell Distribution Width 12.5 % (12.1-15.1); White Blood Count 13.1 10^3/uL (4.0-10.0)
[2022-09-30 05:30] LABS: Anion Gap 11.5 (5-19); Blood Urea Nitrogen 9 mg/dL (8-23); Calcium 9.5 mg/dL (8.5-10.5); Carbon Dioxide 26 mmol/L (22-29); Chloride 99 mmol/L (98-107); Glomerular Filtration Rate 71.8 mL/min (90-130); Glucose 125 mg/dL (65-115); Osmolality Calculated 274 mOsm/kg (285-295); Potassium 4.5 mmol/L (3.5-5.1); Sodium 132 mmol/L (136-145)
[2022-09-30] MEDS: TRAMadol 50 mg Tablet PO (06:07)
[2022-09-30] MEDS: acetaminophen 1,000 MG/100 ML PIGGYBACK 400 MG IV (06:08)
[2022-09-30 07:30] VITALS: BP 155/70; PULSE 68; RESP 18; TEMP 36.7; O2SAT 95
[2022-09-30 08:00] VITALS: PULSE 81; RESP 16; O2SAT 96
[2022-09-30 08:10] VITALS: PULSE 80
[2022-09-30] MEDS: ceFAZolin 2,000 MG in sodium chloride 0.9% (plus) 50 ML 100 MG IV (08:15)
[2022-09-30] MEDS: calcium carb-vit d 600mg/400unit 1 Tablet 1 EACH PO (08:16)
[2022-09-30] MEDS: aspirin 81 mg EC Tablet PO (08:16)
[2022-09-30] MEDS: docusate sodium 100 mg Capsule PO (08:16)
[2022-09-30] MEDS: apixaban 5 mg Tablet 2.5 MG PO (08:16)
[2022-09-30] MEDS: iron polysaccharide complex 150 mg Capsule PO (08:16)
[2022-09-30] MEDS: multivitamin therapeutic Tablet 1 TAB PO (08:18)
--- NOTE | 2022-09-30 08:23 | PM.DCS ---
Discharge Providers Date of Admission: 09/29/22 10:37 Date of Discharge: September 30, 2022 Attending Provider at Admission: Gonzalez Ocampo DO Attending Provider at Discharge: Gonzalez Ocampo DO Consults: Dr. Amezcua hospitalist internal medicine Primary Care Provider: Anne Valentin MD Reason for Visit Reason for Visit: M17.11 Brief History: Right total knee arthroplasty Hospital Course Hospital Course Patient presented to the preoperative holding area with plan for right total knee arthroplasty after patient has been worked up in the outpatient setting for failed conservative treatment of right knee degenerative joint disease.? Once cleared by anesthesia for surgery patient subsequently was taken back to the operative suite she underwent spinal anesthesia and then subsequently underwent a right total knee arthroplasty.? Procedure was performed without any complications patient was taken to PACU in stable condition patient? recovered well in PACU and then was admitted to the floor postoperatively internal medicine was consulted and on board for medical management and assistance with care.? Patient received appropriate PT/OT, postoperative antibiotics, postoperative TXA, pain control, postoperative DVT prophylaxis.? Elevation and ice.? Patient encouraged for knee range of motion allowed weightbearing as tolerated to the right lower extremity.? Dressing was changed as needed. labs were monitored daily.? Patient recovered well postoperatively and worked well and progressed well with therapy.? It was determined on postoperative day 1 the patient was stable for discharge from an orthopedic standpoint as well as internal medicine standpoint.? Patient was comfortable with discharge and plan was discharged home.? Patient received appropriate discharge instructions as well as pain medication and DVT prophylaxis postoperatively.? Given appropriate instructions for her dressing management.? Patient will follow-up with Dr. Ocampo/orthopedics in the office in 2 weeks.? All questions answered.? Understand if there is any issues questions or concerns and contact the office. Physical Exam Narrative: Examination of the right knee: The right lower extremity distal pulses are palpable toes warm well perfused. Dressings on in place clean dry and intact normal postoperative swelling noted patient's able to form straight leg raise. No calf tenderness. Sensations intact light touch distally. Patient is able to wiggle toes plantarflex and dorsiflex ankle. Urinary Catheter Management: Rivera: Cath Placed During This Visit: yes, but has since been removed by the nurse Reason for Continuing Indwelling Catheter: Perioperative Use in Selected Surgeries Urinary Catheter Date of Insertion: 09/29/22 Urinary Catheter Time of Insertion: 08:32 Date Urinary Catheter Removed: 09/30/22 Time Urinary Catheter Discontinued: 06:15 Discharge Data Studies Completed and Pending Completed Studies During Hospitalization Category Date Time Status XR knee RT 1-2V 90367 Routine Exams 09/29/22 10:46 Completed Pending at discharge Category Date Time Status Basic Metabolic Panel AM LABS Lab 10/01/22 04:00 Ordered Basic Metabolic Panel AM LABS Lab 10/02/22 04:00 Ordered Complete Blood Count w/Auto AM LABS Lab 10/01/22 04:00 Ordered Complete Blood Count w/Auto AM LABS Lab 10/02/22 04:00 Ordered Radiology Impressions Knee X-Ray 09/29/22 10:46 IMPRESSION: Normal Postoperative RIGHT TKA. Kellgren-Tommie Classification: Laboratory Results WBC 13.1 10^3/uL (4.0-10.0) H 09/30/22 05:03 RBC 4.11 10^6/uL (4.1-5.3) 09/30/22 05:03 Hgb 12.3 g/dL (11.5-15.3) 09/30/22 05:03 Hct 37.5 % (37.0-47.0) 09/30/22 05:03 MCV 91.2 fl (81-99) 09/30/22 05:03 MCH 29.9 pg (28.0-34.0) 09/30/22 05:03 MCHC 32.8 g/dL (30.0-36.0) 09/30/22 05:03 RDW 12.5 % (12.1-15.1) 09/30/22 05:03 Plt Count 261 10^3/cmm (130-400) 09/30/22 05:03 MPV 10.0 fL (7.4-10.4) 09/30/22 05:03 Neut % (Auto) 81.0 % 09/30/22 05:03 Lymph % (Auto) 13.0 % 09/30/22 05:03 [place] % (Auto) 5.2 % 09/30/22 05:03 Eos % (Auto) 0.1 % 09/30/22 05:03 Baso % (Auto) 0.2 % 09/30/22 05:03 Neut # (Auto) 10.59 10^3/uL (1.8-7.7) H 09/30/22 05:03 Lymph # (Auto) 1.7 10^3/uL (0.8-4.8) 09/30/22 05:03 [place] # (Auto) 0.7 10^3/uL (0.2-0.9) 09/30/22 05:03 Eos # (Auto) 0.0 10^3/uL (0.0-0.8) 09/30/22 05:03 Baso # (Auto) 0.0 10^3/uL (0.0-0.1) 09/30/22 05:03 Nucleated RBC % (auto) 0 % 09/30/22 05:03 Nucleated RBCs # 0.0 /100WBC 09/30/22 05:03 Sodium 132 mmol/L (136-145) L 09/30/22 05:03 Potassium 4.5 mmol/L (3.5-5.1) 09/30/22 05:03 Chloride 99 mmol/L (98-107) 09/30/22 05:03 Carbon Dioxide 26 mmol/L (22-29) 09/30/22 05:03 Anion Gap 11.5 (5-19) 09/30/22 05:03 BUN 9 mg/dL (8-23) 09/30/22 05:03 Creatinine 0.8 mg/dL (0.5-0.9) 09/30/22 05:03 GFR Calculation 71.8 mL/min (90-130) L 09/30/22 05:03 Glucose 125 mg/dL (65-115) H 09/30/22 05:03 Calculated Osmolality 274 mOsm/kg (285-295) L 09/30/22 05:03 Calcium 9.5 mg/dL (8.5-10.5) 09/30/22 05:03 Urine Color Yellow (Yellow) 09/22/22 10:08 Urine Appearance Clear (CLEAR) 09/22/22 10:08 Urine pH 5 (5-7) 09/22/22 10:08 Ur Specific [place]fall 1.020 (1.005-1.030) 09/22/22 10:08 Urine Protein Neg (Negative) 09/22/22 10:08 Urine Glucose (UA) Norm (Normal) 09/22/22 10:08 Urine Ketones Negative (Negative) 09/22/22 10:08 Urine Blood Neg (Negative) 09/22/22 10:08 Urine Nitrate Negative (Negative) 09/22/22 10:08 Urine Bilirubin Neg (Negative) 09/22/22 10:08 Urine Urobilinogen Norm mg/dL (Negative) 09/22/22 10:08 Ur Leukocyte Esterase Negative (Negative) 09/22/22 10:08 Blood Type A Positive 09/29/22 06:42 Rho(D) Type Positive 09/29/22 06:42 Antibody Screen Negative 09/29/22 06:42 Procedures Performed Right total knee arthroplasty Vitals Last Vital Signs Temp 98.0 F 09/30/22 07:30 Pulse 68 09/30/22 07:30 Resp 18 09/30/22 07:30 BP 155/70 09/30/22 07:30 Pulse Ox 95 09/30/22 07:30 O2 Del Method Room Air 09/30/22 07:30 Discharge Plan Discharge Patient Disposition: Home Condition: Stable Prescriptions: New Colace 100 mg capsule 100 mg PO DAILY PRN (Reason: constipation) 10 Days Qty: 10 0RF calcium carbonate-vitamin D3 600 mg-10 mcg (400 unit) Tablet 1 tab PO BID 30 Days Qty: 60 0RF Eliquis 2.5 mg tablet 2.5 mg PO BID 14 Days Qty: 28 0RF Percocet 5-325 mg tablet 1 tab PO Q6H PRN (Reason: pain) 7 Days Qty: 28 0RF Continued potassium chloride 20 mEq tablet extended release 20 meq PO BID Qty: 60 0RF lisinopril 40 mg tablet 40 mg PO DAILY Qty: 90 0RF buspirone 10 mg tablet 10 mg PO BID Qty: 180 1RF fluticasone propion-salmeterol [Advair HFA] 45-21 mcg/actuation HFA aerosol inhaler 2 inh inhalation Q12H Qty: 8 0RF Rx Instructions: administer with spacer Discharge Orders: Discharge Order (Routine); Ordered 09/30/22 Ordered By: Sherman Amezcua Referrals: Anne Valentin MD [Primary Care Provider] - 10/04/22 2:20 pm Gonzalez Ocampo DO [Physician] - 10/14/22 1:30 pm () Discharge Diet: Advance as tolerated Discharge Activity: Increase activity as tolerated, Use walker/crutches as instructed and As per PT/OT instructions Patient Instructions: Oxycodone/Acetaminophen (By mouth) (Percocet, Roxicet), Laxative, Stool Softeners (By mouth), Ondansetron (By mouth), Calcium/Vitamin D Supplement (By mouth), Apixaban (By mouth), Knee Replacement (GEN), Opioid Safety Activity Restrictions/Additional Instructions: Orthopedic discharge instructions: Patient should leave bandage dressing on in place for 72 hours from surgery. After that may remove Chong wrap and soft dressing leave incisional bandage on and in place. Keep incision and bandage clean dry and intact. After 7 days may remove this sticky bandage and leave glued mesh on the skin intact and in place. No baths or soaks Elevation ice as needed for pain and swelling Weight-bear as tolerated right lower extremity Encourage knee range of motion as tolerated Utilize walker or cane as needed for stability Take pain medication as prescribed Take antinausea medication as needed Supplement with Citracal vitamin D for bone health and healing Take Colace for constipation as needed Take Eliquis (blood thinner) as prescribed for 14 days postoperatively for blood clot prevention Follow-up in the orthopedic office in 2 weeks contact the office for any questions or concerns Discharge Attestations Time Spent in Discharge Care*: greater than 30 min Quality Metrics Clinical Quality Measures [ No reported AMI, CVA or VTE this stay] Coding Level of Care Code Acute Code for Chg Fwd Diagnoses Time Spent (min) 35
[2022-09-30] MEDS: budesonide 0.5 mg/2 mL Neb INHALATION (09:08)
--- NOTE | 2022-09-30 11:00 | PC.CHAP ---
Pastoral Care Encounter/Spiritual Assessment Type of Contact [] Declined holder pile driving visit [] Patient/Family/Request visit [] Outpatient visit [] Follow-up visit [] Physician referral [] Code/Alert [x] Routine visit [] Staff referral [] Actively dying [] Patient sleeping [] Family support [] [] Out of room [] Palliative care [] [x] Receiving care in room [] Pre-surgical visit [] Trauma [] Long length of stay [] ICU visit [] Other: Relational/Emotional Strength [x] Patient feels connected with others/family/visitors/staff [] Distress [] Loneliness/isolation [] Abandonment Spirituality of Patient [x] Person of Valorie [] Attends Restoration of their Valorie [x] Believes in Prayer [] Reads Bible or Episcopalian materials [] There are Spiritual issues to be addressed Mandrel Maker Interventions [x] Prayer [x] Active listening [x] Non-anxious presence [x] Spiritual/emotional support [] Crisis/trauma care [x] Spiritual counseling [] Bereavement support [] Provided bereavement packet [] Provided Bible/devotional materials [] Provided toy/stuffed animal, coloring book to patient or family member [] Provided Communion [] Anointing/[place] [] Salvation [x] Completed spiritual assessment [] Other: Impact on Illness or Injury [] Angry [] Fearful [] Anxious [] Often cries [] Exhaustion [] Unable to work [] Unable to attend sikhism [] Unable to walk/stand [] Unable to read [] Unable to drive [] Unable to eat/drink [] Unable to sleep [] Unable to be with family [] Patient intubated [] Other: Summary heart negative response well need rehab from home has come back treatments twice a day has a postive attitude Time spent with patient
[2022-09-30 11:07] VITALS: BP 155/70; PULSE 68; RESP 18; TEMP 36.6; O2SAT 95
== END 2022-09-30 11:21 | disposition home or self-care (01) ==
LOC: MEDSURG 10:38
PROVIDERS: Admitting Provider Student in an Organized Health Care Education/Training Program; PCP Family Medicine; Visit Provider Student in an Organized Health Care Education/Training Program
PROC: 8E0Y0CZ Robotic Assisted Procedure of Lower Extremity, Open Approach (ICD-10-PCS; CPT 27447; principal; 2022-09-29 07:55)
DX: M17.11 Unilateral primary osteoarthritis, right knee (principal); I10 Essential (primary) hypertension; J44.9 Chronic obstructive pulmonary disease, unspecified; I73.9 Peripheral vascular disease, unspecified; E66.01 Morbid (severe) obesity due to excess calories; Z68.35 Body mass index [BMI] 35.0-35.9, adult; E03.9 Hypothyroidism, unspecified; Z87.891 Personal history of nicotine dependence
CPT/HCPCS: 20985; 27447; 36415; 51702; 73560; 80048; 81003; 85025; 86850; 86900; 94640; 97110; 97116; 97161; 97165; 97530; C1776; G0378; J0131; J0171; J0690; J1100; J1885; J2250; J2405; J2704; J2795; J3010; J7030; J7120; J7626

== ENCOUNTER → 2022-10-14 13:41 | Outpatient (BNVA) | payer MEDICAID, SELFPAY | PROVIDERS: PCP Family Medicine; Visit Provider Student in an Organized Health Care Education/Training Program | DX: Z96.651 Presence of right artificial knee joint (principal) | CPT/HCPCS: 73560; 73565; 99024 ==

== ENCOUNTER → 2022-11-30 13:46 | Outpatient (BNVA) | payer MEDICAID, SELFPAY | PROVIDERS: PCP Family Medicine; Visit Provider Student in an Organized Health Care Education/Training Program | DX: Z96.651 Presence of right artificial knee joint | CPT/HCPCS: 73560; 73565; 99024 ==

== ENCOUNTER → 2023-02-04 13:14 | Outpatient (BNVA) | payer MEDICAID, SELFPAY | PROVIDERS: PCP Family Medicine; Visit Provider Family Medicine | DX: R13.10 Dysphagia, unspecified (principal); K21.9 Gastro-esophageal reflux disease without esophagitis; E87.1 Hypo-osmolality and hyponatremia; E87.6 Hypokalemia; I10 Essential (primary) hypertension | CPT/HCPCS: 80053 ==

== ENCOUNTER → 2025-02-22 07:55 | Outpatient (BNVA) | payer SELFPAY | PROVIDERS: PCP Family Medicine; Visit Provider Physician Assistant | DX: G56.02 Carpal tunnel syndrome, left upper limb (principal); G56.22 Lesion of ulnar nerve, left upper limb | CPT/HCPCS: 73130 ==